=== PATIENT | female | born 1960 | race Caucasian/White ===

== ENCOUNTER 2018-02-19 13:26 | Emergency (ER) | payer OTHER ==
[2018-02-19] MEDS: SOD CHLORIDE 0.9% 500 ML IV (17:16)
[2018-02-19] MEDS: ONDANSETRON 4 MG INJ IV (17:16)
[2018-02-19] MEDS: KETOROLAC 15 MG INJ IV (17:16)
[2018-02-19 18:02] LABS: ADD UMIC YES; UR ASCORBIC ACID NEGATIVE (NEGATIVE); UR BACTERIA FEW /HPF (NONE SEEN); UR BILIRUBIN (Dip) NEGATIVE (NEGATIVE); UR BLOOD (Dip) NEGATIVE (NEGATIVE); UR CLARITY CLEAR (CLEAR); UR COLOR YELLOW (YELLOW); UR GLUCOSE (Dip) NEGATIVE (NEGATIVE); UR KETONES (Dip) NEGATIVE (NEGATIVE); UR LEUKOCYTE ESTERASE (Dip) TRACE Leu/ul (NEGATIVE); UR NITRITE (Dip) NEGATIVE (NEGATIVE); UR RBC 2 /HPF (0-5); UR SPECIFIC GRAVITY (Dip) 1.024 (1.003-1.030); UR SQUAMOUS EPITHELIAL CELL FEW /HPF (FEW); UR TOTAL PROTEIN (Dip) NEGATIVE (NEGATIVE); UR UROBILINOGEN (Dip) NEGATIVE (NEGATIVE); UR WBC 5 /HPF (0-5)
[2018-02-19 18:56] LABS: ADD MAN DIFF? NO
[2018-02-19 19:01] LABS: WHITE BLOOD COUNT 8.5 10^3/ul (4.8-10.8)
[2018-02-19 19:01] LABS: BASOPHILS % 0.5 % (0.0-2.0); EOSINOPHILS # 0.2 10^3/ul (0.0-0.5); EOSINOPHILS % 1.9 % (0.0-7.0); HEMATOCRIT 40.2 % (37.0-47.0); HEMOGLOBIN 13.7 g/dl (12.0-16.0); LYMPHOCYTES # 2.5 10^3/ul (0.8-2.9); LYMPHOCYTES % 29.9 % (15.0-51.0); MEAN CORPUSCULAR HEMOGLOBIN 32.2 pg (29.0-33.0); MEAN CORPUSCULAR HGB CONC 34.1 g/dl (32.0-37.0); MEAN CORPUSCULAR VOLUME 94.4 fl (82.0-101.0); MEAN PLATELET VOLUME 10.6 fl (7.4-10.4); MONOCYTE # 0.7 10^3/ul (0.3-0.9); MONOCYTES % 8.2 % (0.0-11.0); NEUTROPHILS % 59.3 % (39.0-77.0); PLATELET COUNT 281 10^3/UL (140-415); RED BLOOD COUNT 4.26 10^6/ul (4.20-5.40); RED CELL DISTRIBUTION WIDTH 13.1 % (11.5-14.5)
[2018-02-19 19:18] LABS: ALANINE AMINOTRANSFERASE 19 IU/L (13-69); ALBUMIN 4.4 g/dl (3.3-4.9); ALBUMIN/GLOBULIN RATIO 1.29; ALKALINE PHOSPHATASE 86 IU/L (42-121); ANION GAP 17 (8-16); ASPARTATE AMINO TRANSFERASE 19 IU/L (15-46); BILIRUBIN,INDIRECT 0.2 mg/dl (0-1.1); BILIRUBIN,TOTAL 0.2 mg/dl (0.2-1.3); BLOOD UREA NITROGEN 14 mg/dl (7-20); CALCIUM 9.5 mg/dl (8.4-10.2); CARBON DIOXIDE 28 mmol/L (21-31); CHLORIDE 102 mmol/L (97-110); CREATININE 0.67 mg/dl (0.44-1.00); GLUCOSE 143 mg/dl (70-220); LIPASE 283 U/L (23-300); SODIUM 143 mmol/L (135-144); TOTAL PROTEIN 7.8 g/dl (6.1-8.1)
[2018-02-19] MEDS ORDERED: ONDANSETRON (ODT) 4 MG TAB ODT (19:22)
[2018-02-19] MEDS: CEPHALEXIN 500 MG CAP PO (19:26)
[2018-02-19 19:30] LABS: TROPONIN-I < 0.012 ng/ml (0.00-0.12)
== END 2018-02-19 19:59 | disposition home or self-care (01) ==
LOC: E/R 13:26
DX: S80.12XA Contusion of left lower leg, initial encounter (principal); R42 Dizziness and giddiness; N39.0 Urinary tract infection, site not specified; I10 Essential (primary) hypertension; E11.9 Type 2 diabetes mellitus without complications; E66.9 Obesity, unspecified; W19.XXXA Unspecified fall, initial encounter; Y92.9 Unspecified place or not applicable; Z96.653 Presence of artificial knee joint, bilateral
CPT/HCPCS: 71045; 73110-LT; 73562; 73590; 80053; 81001; 83690; 84484; 85025; 93005; 99285-25

== ENCOUNTER 2018-09-03 15:28 | Emergency (ER) | payer OTHER | END 2018-09-03 17:06 | disposition home or self-care (01) | LOC: FTE 15:28 | DX: M25.512 Pain in left shoulder (principal); I10 Essential (primary) hypertension; E11.9 Type 2 diabetes mellitus without complications; Z96.653 Presence of artificial knee joint, bilateral | CPT/HCPCS: 73000; 73030; 73060; 99283-25 ==